=== PATIENT | male | born 1985 | race Caucasian/White ===

== ENCOUNTER 2017-06-08 19:45 | Emergency (ER) | payer SELFPAY ==
--- NOTE | 2017-06-08 19:49 | PDOC ---
History of Present Illness - General History Source: Patient Exam Limitations: No Limitations - History of Present Illness Initial Comments: 06/08/17 21:23 Patient is a 31 year old male with a significant past medical history of Bronchial inflations, Pericarditis(Age 16), Recurring chest pain and SOB who presents to the ED with complaints of SOB beginning suddenly 40 minds before ED arrival. Patient reports walking when sudden shortness of breath episode began suddenly. Patient reports chest pain secondary to SOB and intensity of pain with inspiration. He states chest pain is sharp pain that is rated a 5/10 on intensity. He reports chest pain is intensified when laying flat down. Patient past intermittent episodes of random chest pain and SOB that he states ranged from 2 minutes to 2 weeks. Denies fever, vomiting. Denies nausea, chills. Denies any other symptoms. Allergies: None Social history: No smoking. No alcohol. No illicit drugs. Surgical history: No known surgical history PMD: None <Peña Cardenas - Last Filed: 06/08/17 21:39> <Tracee Ayala - Last Filed: 06/09/17 05:12> - General Chief Complaint: Shortness of Breath Stated Complaint: DIFFICULTY BREATHING/CHEST PAIN Time Seen by Provider: 06/08/17 19:48 Past History <Peña Cardenas - Last Filed: 06/08/17 21:39> - Past Medical History Cardiac Disorders: Yes (PERICARDITIS) - Surgical History Appendectomy: Yes - Suicide/Smoking/Psychosocial Hx Smoking Status: No Smoking History: Never smoked Number of Cigarettes Smoked Daily: 0 Hx Alcohol Use: No <Tracee Ayala - Last Filed: 06/09/17 05:12> - Past Medical History Allergies/Adverse Reactions: Allergies Allergy/AdvReac Type Severity Reaction Status Date / Time No Known Allergies Allergy Verified 06/08/17 19:56 Home Medications: Ambulatory Orders No Home Medications 0 dose .ROUTE UTDICT 06/20/12 Naproxen Sodium 550 mg PO BID PRN #20 tablet 06/08/17 Review of Systems - Review of Systems Able to Perform ROS?: Yes Comments:: 06/08/17 21:23 GENERAL/CONSTITUTIONAL: No fever or chills. No weakness. HEAD, EYES, EARS, NOSE AND THROAT: No change in vision. No ear pain or discharge. No sore throat. GASTROINTESTINAL: No nausea, vomiting, diarrhea or constipation. GENITOURINARY: No dysuria, frequency, or change in urination. CARDIOVASCULAR: +Chest pain. +SOB. RESPIRATORY: No cough, wheezing, or hemoptysis. MUSCULOSKELETAL: No joint or muscle swelling or pain. No neck or back pain. SKIN: No rash NEUROLOGIC: No headache, vertigo, loss of consciousness, or change in strength/ sensation. ENDOCRINE: No increased thirst. No abnormal weight change. HEMATOLOGIC/LYMPHATIC: No anemia, easy bleeding, or history of blood clots. ALLERGIC/IMMUNOLOGIC: No hives or skin allergy. All Other Systems: Reviewed and Negative <Peña Cardenas - Last Filed: 06/08/17 21:39> *Physical Exam - Vital Signs Last Vital Signs Temp Pulse Resp BP Pulse Ox 98.3 F 94 H 22 145/73 100 06/08/17 19:58 06/08/17 20:21 06/08/17 20:21 06/08/17 20:21 06/08/17 20:21 - Physical Exam Comments: 06/08/17 21:23 GENERAL: +Extreme Diaphoresis Awake, alert, and fully oriented. HEAD: No signs of trauma EYES: PERRLA, EOMI, sclera anicteric, conjunctiva clear ENT: Auricles normal inspection, hearing grossly normal, nares patent, oropharynx clear without exudates. Moist mucosa NECK: Normal ROM, supple, no lymphadenopathy, JVD, or masses LUNGS: distant breathe sounds with fair air exchange no bronchi wheezing or rubs. CHEST WALL: No tenderness, or crepitus felt. HEART: Regular rate and rhythm, normal S1 and S2, no murmurs, rubs or gallops ABDOMEN: Soft, nontender, normoactive bowel sounds. No guarding, no rebound. No masses EXTREMITIES: Normal range of motion, no edema. No clubbing or cyanosis. No cords, erythema, or tenderness NEUROLOGICAL: Cranial nerves II through XII grossly intact. Normal speech, normal gait SKIN: Warm, Dry, normal turgor, no rashes or lesions noted. 06/08/17 21:39 <Peña Cardenas - Last Filed: 06/08/17 21:39> ED Treatment Course - LABORATORY CBC & Chemistry Diagram: 06/08/17 19:50 06/08/17 19:50 - ADDITIONAL ORDERS Additional order review: Laboratory Results 06/08/17 06/08/17 06/08/17 20:10 19:50 19:50 PT with INR 11.6 INR 1.04 D-Dimer < 200 Sodium 137 Potassium 3.2 L Chloride 99 Carbon Dioxide 20 L Anion Gap 18 H BUN 14 Creatinine 1.5 H Creat Clearance w eGFR 54.24 Random Glucose 101 Calcium 9.7 Total Bilirubin 0.7 AST 32 ALT 22 Alkaline Phosphatase 72 Creatine Kinase 143 Troponin I < 0.03 L Total Protein 7.9 Albumin 4.7 06/08/17 19:50 RBC 5.71 H MCV 82.2 MCHC 33.7 RDW 12.8 MPV 9.3 Neutrophils % 55.0 Lymphocytes % 33.2 Monocytes % 8.5 Eosinophils % 2.6 Basophils % 0.7 - Medications Given in the ED: ED Medications Discontinued Medications Generic Name Dose Route Start Last Admin Trade Name Freq PRN Reason Stop Dose Admin Ketorolac Tromethamine 30 mg 06/08/17 20:04 06/08/17 20:11 Toradol Injection - IVPUSH 06/08/17 20:05 30 mg ONCE ONE Administration <Peña Cardenas - Last Filed: 06/08/17 21:39> - LABORATORY CBC & Chemistry Diagram: 06/08/17 19:50 06/08/17 22:20 <Tracee Ayala - Last Filed: 06/09/17 05:12> Medical Decision Making - Medical Decision Making Documentation has been prepared under my direction and personally reviewed by me in its entirety. I attest that this documented accurately reflects all work, treatment, procedures and medical decision making performed by me. As noted above, this 31-year-old man with no significant history except apparent acute pericarditis when he was 16 years old. According to the patient , he continued to have intermittent milder pain after the initial episode when he was a teenager. These intermittent episodes continued until he was 23 years old. He occasionally gets very mild episodes of chest pain; today's pain was similar except pain was more severe. Patient had nearly total resolution of symptoms after 30 mg of Toradol IV. Laboratory evaluation showed a white blood cell count of 13,800; ESR was normal at 4 . Initial elevation of anion gap to 18 was likely lab error and that repeat was normal at 8. Likewise, hypokalemia corrected without supplementation on repeat draw. D-dimer was negative Portable chest x-ray showed questionable cardiomegaly but otherwise no evidence of acute process. Etiology of patient's pain is unclear. no obvious evidence for acute pericarditis is present in this patient. He does not have a current general medical doctor I see is pending insurance coverage. He has been advised to return to the emergency room if he has any worsening of his symptoms; 's referral information will also be given to him. <Tracee Ayala - Last Filed: 06/09/17 05:12> *DC/Admit/Observation/Transfer - Attestations Scribe Attestion: 06/08/17 21:24 Documentation prepared by Peña Cardenas, acting as medical assistant secretary for Tracee Ayala MD/DO. <Peña Cardenas - Last Filed: 06/08/17 21:39> <Tracee Ayala - Last Filed: 06/09/17 05:12> Diagnosis at time of Disposition: Atypical chest pain - Discharge Dispostion Disposition: HOME Condition at time of disposition: Stable - Prescriptions Prescriptions: Naproxen Sodium 550 mg PO BID PRN #20 tablet PRN Reason: Moderate Pain - Referrals Referrals: Marita Navarrete MD [Staff Physician] - - Patient Instructions Printed Discharge Instructions: DI for Atypical Chest Pain Additional Instructions: Rest; drink plenty fluids No work for the next 2 days Anaprox DS up to twice a day as needed for pain (take with food) Return to ER if you have severe pain/shortness of breath Follow-up with Dr. Navarrete within the next week - Post Discharge Activity Work/School Note: Back to Work
[2017-06-08 20:04] LABS: BASOPHIL 0.7 % (0-2.0); EOSINOPHIL 2.6 % (0-4.5); MCH 27.7 pg (25.7-33.7); MCHC 33.7 g/dl (32.0-35.9); MEAN CELL VOLUME 82.2 fl (80-96); MEAN PLT VOLUME 9.3 fl (7.5-11.1); PLATELET COUNT 341 K/MM3 (134-434); RDW 12.8 % (11.9-15.9); WHITE BLOOD COUNT 13.8 K/mm3 (4.0-10.8)
[2017-06-08] MEDS ORDERED: KETOROLAC TROMETHAMINE 30 MG/1 ML VIAL IVPUSH ONE (20:04)
[2017-06-08 20:05] VITALS: TEMP 98.3; BMI 34.4
[2017-06-08] MEDS ORDERED: KETOROLAC TROMETHAMINE 30 MG/1 ML VIAL ONE (20:06)
[2017-06-08 20:14] LABS: INR 1.04 (0.82-1.09); PROTHROMBIN TIME (PATIENT) 11.6 SEC (10.2-13.0)
[2017-06-08 20:41] LABS: ALBUMIN 4.7 g/dl (3.5-5.0); ALK PHOS 72 U/L (32-92); ANION GAP 18 (8-16); BILIRUBIN,TOTAL 0.7 mg/dl (0.2-1.0); CALCIUM 9.7 mg/dl (8.4-10.2); CO2 20 mmol/L (22-28); CPK 143 IU/L (39-308); CREATININE 1.5 mg/dl (0.6-1.3); GLUCOSE,RANDOM 101 mg/dl (74-106); SGOT/AST 32 U/L (10-42); SGPT/ALT 22 U/L (10-40); TOT PROT 7.9 g/dl (6.4-8.3)
[2017-06-08 20:58] LABS: TROPONIN I (DFP) < 0.03 ng/ml (0.03-0.50)
[2017-06-08 21:59] VITALS: BP 116/75; PULSE 80
[2017-06-08 23:07] LABS: ANION GAP 8 (8-16); CALCIUM 9.3 mg/dl (8.4-10.2); CO2 25 mmol/L (22-28); CREATININE 1.2 mg/dl (0.6-1.3); GLUCOSE,RANDOM 105 mg/dl (74-106)
--- NOTE | 2017-06-09 22:12 | EKG ---
Test Reason : Blood Pressure : / mmHG Vent. Rate : 112 BPM Atrial Rate : 112 BPM P-R Int : 170 ms QRS Dur : 086 ms QT Int : 342 ms P-R-T Axes : 048 -42 046 degrees QTc Int : 466 ms SINUS TACHYCARDIA BASELINE ARTIFACTS POSSIBLE LEFT ATRIAL ENLARGEMENT LEFT AXIS DEVIATION PULMONARY DISEASE PATTERN ABNORMAL ECG NO PREVIOUS ECGS AVAILABLE RECOMMEND REPEAT EKG,IF CLINICALLY INDICATED Confirmed by HIGINIO LUJAN MD ([id number]) on 06/09/2017 10:12:23 PM Referred By: MAO Confirmed By:HIGINIO LUJAN MD
== END 2017-06-08 23:36 | disposition home or self-care (01) ==
LOC: FER 19:45
PROC: 3E0333Z Introduction of Anti-inflammatory into Peripheral Vein, Percutaneous Approach (ICD-10-PCS; principal; 2017-06-08)
DX: R07.89 Other chest pain (principal)
CPT/HCPCS: 36415; 71010-TC; 80048; 80053; 84484; 85025; 85379; 85610; 85651; 93005; 99283-25

== ENCOUNTER 2017-11-24 02:35 | Emergency (ER) | payer SELFPAY ==
[2017-11-24 02:43] VITALS: BP 142/90; PULSE 77; TEMP 97.9; BMI 35.9
--- NOTE | 2017-11-24 02:48 | PDOC ---
History of Present Illness - General Chief Complaint: Pain, Acute Stated Complaint: CHEST PAIN ,SOB X 3 WEEKS Time Seen by Provider: 11/24/17 02:47 History Source: Patient Exam Limitations: No Limitations - History of Present Illness Initial Comments: 11/24/17 03:02 This is a 32-year-old male who comes in complaining of chest pain and shortness of breath 3 weeks. Pain is been nearly constant. Patient said nothing makes it wet or worse. Patient has a history significant for a recent of his father in September and his symptoms began shortly after that. Patient has history significant for a history of pericarditis in the past Patient denies any risk factors including no history of hypertension, high cholesterol, diabetes, coronary artery disease, family history of heart disease or history of smoking or illegal drug use. PAST MEDICAL HISTORY: As per history of present illness PAST SURGICAL HISTORY: no significant history FAMILY HISTORY: no pertinant history SOCIAL HISTORY: Pt lives with family and is employed. MEDICATIONS: reviewed ALLERGIES: As per nursing notes Review of Systems General: No fevers or chills, no weakness, no weight loss HEENT: No change in vision. No sore throat,. No ear pain CardioVascular: + chest pain or + shortness of breath Respiratory:No cough, or wheezing. Gastrointestinal: no nausea, vomitting, diarrhea or constipation, No rectal bleeding Genitourinary: No dysuria, hematuria, or frequency Musculoskeletal: No joint or muscle pain or swelling Neurologic: No headache, vertigo, dizziness or loss of consciousness Psychiatric: nor depression Skin: No rashes or easy bruising Endocrine: no increased thirst or abnormal weight change Allergic: no skin or latex allergy All other systems reviewed and normal Exam: General: Well-nourished well-developed individual, no acute distress, anxious appearing HEENT: Throat: Normal, tonsils normal, no erythema or exudate Neck: Supple, no meningeal signs, no lymphadenopathy Eyes::Pupils equal reactive and round, extraocular motion intact Chest: Nontender to palpation Cardiac: S1-S2 normal, regular rate and rhythm, no murmurs rubs or gallops Respiratory: Lungs clear to auscultation bilateral Abdomen: Soft, nondistended, normal bowel sounds, nontender to palpation diffusely Extremities: Warm, dry, no cyanosis, clubbing, or edema Skin: No rashes Neuro: Alert and oriented x3, CN II - XII intact, nonfocal exam with normal strength, normal sensation, normal reflexes, normal gait, Psych: Normal mood and affect EKG shows normal sinus rhythm at a rate of 73, no acute ST-T wave changes, normal intervals with a left axis deviation Assessment and plan: This is a 32-year-old male with anxiety that began after his father recently. Patient is complaining of some chest pain however he has no risk factors and his young and a normal cardiogram. Patient discharged home and a prescription for some Xanax since to his pharmacy Past History - Past Medical History Allergies/Adverse Reactions: Allergies Allergy/AdvReac Type Severity Reaction Status Date / Time No Known Allergies Allergy Verified 11/24/17 02:37 Home Medications: Ambulatory Orders No Home Medications 0 dose .ROUTE UTDICT 06/20/12 Alprazolam [Xanax] 1 mg PO DAILY PRN #10 tablet MDD 1 11/24/17 Cardiac Disorders: Yes (PERICARDITIS) - Surgical History Appendectomy: Yes - Suicide/Smoking/Psychosocial Hx Smoking Status: No Smoking History: Never smoked Have you smoked in the past 12 months: No Number of Cigarettes Smoked Daily: 0 Information on smoking cessation initiated: No Hx Alcohol Use: No Drug/Substance Use Hx: No Substance Use Type: None *Physical Exam - Vital Signs Last Vital Signs Temp Pulse Resp BP Pulse Ox 97.9 F 77 16 142/90 100 11/24/17 02:39 11/24/17 02:39 11/24/17 02:39 11/24/17 02:39 11/24/17 02:39 *DC/Admit/Observation/Transfer Diagnosis at time of Disposition: Anxiety - Discharge Dispostion Disposition: HOME Condition at time of disposition: Stable Admit: No - Prescriptions Prescriptions: Alprazolam [Xanax] 1 mg PO DAILY PRN #10 tablet MDD 1 PRN Reason: Anxiety - Referrals - Patient Instructions Additional Instructions: U can take Xanax 1 tablet a day if needed for anxiety. If you find that the Xanax is helping follow-up with a therapist to help you deal with the loss your dad. Return to the emergency department immediately with ANY new, persistent or worsening symptoms. Continue any medications as previously prescribed by your physician. You should follow up with your primary doctor as soon as possible regarding today's emergency department visit. . Please make sure your doctor reviews the results of your emergency evaluation. Thank you for coming to the Emergency Department today for your care. It was a pleasure to see you today. Please note that your evaluation is INCOMPLETE until you follow-up with your doctor. - Post Discharge Activity
--- NOTE | 2017-11-24 11:57 | EKG ---
Test Reason : Blood Pressure : / mmHG Vent. Rate : 073 BPM Atrial Rate : 073 BPM P-R Int : 172 ms QRS Dur : 086 ms QT Int : 378 ms P-R-T Axes : 059 -32 014 degrees QTc Int : 416 ms POOR DATA QUALITY, INTERPRETATION MAY BE ADVERSELY AFFECTED NORMAL SINUS RHYTHM LEFT AXIS DEVIATION Confirmed by MD Whitfield Edward ([id number]) on 11/24/2017 11:57:11 AM Referred By: MD HUBER Confirmed By:Fady Whitfield MD
== END 2017-11-24 03:24 | disposition home or self-care (01) ==
LOC: FER 02:35
DX: F41.9 Anxiety disorder, unspecified (principal); I31.9 Disease of pericardium, unspecified
CPT/HCPCS: 93005; 99281-25